=== PATIENT | female | born 1970 | race Caucasian/White ===

== ENCOUNTER 2018-09-24 07:56 | Emergency (ER) | payer OTHER ==
[~2018-09-24] VITALS: Ht 162.6 cm; Wt 74.8 kg
[2018-09-24 07:59] VITALS: BP 131/70
[2018-09-24] MEDS ORDERED: NORCO 5-325 TA1 EACH PO (09:59)
[2018-09-24] MEDS ORDERED: ATIVAN0.5 MG PO (09:59)
[2018-09-24] MEDS ORDERED: PAROXETINE HCL30 MG PO (09:59)
== END 2018-09-24 09:25 | disposition home or self-care (01) ==
LOC: ER 07:56
DX: S50.02XA Contusion of left elbow, initial encounter (principal); S80.212A Abrasion, left knee, initial encounter; F17.210 Nicotine dependence, cigarettes, uncomplicated; W23.0XXA Caught, crushed, jammed, or pinched between moving objects, initial encounter; Y93.89 Activity, other specified; Y92.89 Other specified places as the place of occurrence of the external cause; Y99.8 Other external cause status